=== PATIENT | male | born 1955 | race Caucasian/White ===

== ENCOUNTER 2019-05-24 15:40 | Inpatient (IN) | payer OTHER ==
[~2019-05-24] VITALS: Ht 160 cm; Wt 64.0 kg
[2019-05-24 15:46] VITALS: BP 149/58
--- NOTE | 2019-05-24 16:01 | NUR ---
PT AMB TO BED 10
--- NOTE | 2019-05-24 17:14 | NUR ---
C/O DIABETIC WOUND TO PTS LEFT BIG TOE X 1 MONTH. ERYTHMA, SWELLING, AND WARMTH NOTED TO PTS TOE AND TOP OF FOOT. CAP REFILL < 3 SECONDS, PALPABLE L POSTERIOR TIBIAL. TEMP 98.4 AT THIS TIME. PAIN 2/10 TO SITE. BS 68 UPON TRIAGE REFERRED FROM URGENT CARE FOR R/O SEPSIS. VS STABLE. PT ALERT AND AWAKE. AMBULATORY WITH STEADY GAIT. BED IS DOWN, LOCKED, BED RAIL X 1, ERMD TO SEE PT. MED HX:DM
--- NOTE | 2019-05-24 17:15 | NUR ---
PT UNABLE TO PROVIDE URINE SAMPLE AT THIS TIME
--- NOTE | 2019-05-24 17:23 | NUR ---
IV INSERTED AND LABS DRAWN BEDSIDE
--- NOTE | 2019-05-24 17:24 | NUR ---
SWAB COLLECTED FROM TOE
[2019-05-24] MEDS ORDERED: PIPERACILLIN/TAZOBACTAM 3.375 GM in DEXTROSE 5% 50 ML IV ONE (17:25)
[2019-05-24] MEDS ORDERED: PIPERACILLIN/TAZOBACTAM 3.375 GM VIAL IV ONE ×2 (17:26→23:56)
--- NOTE | 2019-05-24 17:36 | NUR ---
RT AT BEDSIDE
--- NOTE | 2019-05-24 17:37 | NUR ---
ANAHI STARTED IVBP BY NOLAN SANTOS
[2019-05-24 17:43] LABS: HEMATOCRIT 33.2 % (36-52); HEMOGLOBIN 11.1 g/dL (12.0-18.0); LYMPHOCYTES # (AUTO) 0.5 K/uL (2.0-11.5); LYMPHOCYTES % (AUTO) 2.4 % (20.5-51.1); MEAN CORPUSCULAR HEMOGLOBIN 32 pg (27-31); MEAN CORPUSCULAR HGB CONC 34 g/dL (33-37); MEAN CORPUSCULAR VOLUME 95.4 fL (80-94); MONOCYTES # (AUTO) 1.5 K/uL (0.8-1.0); MONOCYTES % (AUTO) 7.8 % (1.7-9.3); NEUTROPHILS % (AUTO) 89.8 % (42.2-75.2); PLATELET COUNT (AUTO) 302 K/uL (140-450); RED BLOOD CELL COUNT(AUTO) 3.48 MIL/uL (4.20-6.10); RED CELL DISTRIBUTION WIDTH 12.5 % (11.6-13.7)
--- NOTE | 2019-05-24 17:49 | NUR ---
ULTRASOUND AT BEDSIDE
[2019-05-24] MEDS ORDERED: ONDANSETRON 4 MG/2 ML VIAL IM/IVP PRN (18:00)
[2019-05-24] MEDS ORDERED: HYDROcodone/APAP 7.5/325 MG 1 TAB PO PRN (18:00)
[2019-05-24] MEDS ORDERED: DOCUSATE SODIUM 100 MG GELCAP PO PRN (18:00)
[2019-05-24] MEDS ORDERED: ACETAMINOPHEN 325 MG TAB PO PRN (18:00)
--- NOTE | 2019-05-24 18:03 | NUR ---
DR BARRETT NOTIFIED OF PTS BP. ORDERED DIABETIC MEAL
--- NOTE | 2019-05-24 18:04 | NUR ---
PT GIVEN JUICE BOX AT THIS TIME
[2019-05-24] MEDS ORDERED: DEXTROSE 50% 50 ML SYR IVP PRN (18:10)
[2019-05-24] MEDS ORDERED: NOVR SUBQ (18:12)
--- NOTE | 2019-05-24 18:26 | NUR ---
Patient noted to have existing wounds TO L BIG TOE upon arrival to ER. Photos taken of wound and placed in chart. Wound covered with dressing. Physician informed.
--- NOTE | 2019-05-24 18:27 | NUR ---
XRAY AT BEDSIDE
[2019-05-24 18:35] LABS: ACETONE, SERUM NEGATIVE (NEGATIVE)
[2019-05-24 18:36] LABS: PROTHROMBIN TIME 9.6 secs (10.8-13.4)
[2019-05-24 18:40] LABS: ALBUMIN 2.8 g/dL (3.4-5.0); ANION GAP 16.2 (8-16); ASPARTATE AMINOTRANSFERASE 18 U/L (15-37); CARBON DIOXIDE 25.6 mmol/L (21-32); CHLORIDE 100 mmol/L (98-107); CREATININE 1.1 mg/dL (0.7-1.3); GFR ARICAN-AMERICAN 87 mL/min (>90); GLUCOSE 69 mg/dL (74-106); MAGNESIUM 1.8 mg/dL (1.8-2.4); POTASSIUM 3.8 mmol/L (3.5-5.1); SODIUM SERUM 138 mmol/L (136-145); TOTAL BILIRUBIN 0.3 mg/dL (0.0-1.0); UREA NITROGEN, BLOOD 21 mg/dL (7-18)
[2019-05-24] MEDS ORDERED: INSU100S10 SC ×2 (18:40)
[2019-05-24] MEDS ORDERED: VANCOMYCIN PER PHARMACY MC PRN (18:45)
--- NOTE | 2019-05-24 18:45 | NUR ---
Patient will be admitted to care of [facility]. Admited to [facility]. Will go to room 119A. Belongings list completed. Report to KARMEN SANTOS. INFORMED KARMEN THAT PT HAS NOT YET URINATED MEAL TRANSPORTED WITH PT, INFORMED KARMEN THAT LAST BLOOD SUGAR WAS 88
--- NOTE | 2019-05-24 18:45 | NUR ---
PT ARRIVED ON THE UNIT. TOOK REPORT FROM [employer] [place] MACHINE TENDER. COLLECTED MRSA NARES. ORIENTED PT TO ROOM AND UNIT. PT APPEARS STABLE AND IN NO APPARENT DISTRESS. ALL SAFETY MEASURES ARE IN PLACE PT STATING AT 100% SPO2 ROOM AIR.
[2019-05-24 18:55] LABS: THYROID STIMULATING HORMONE 2.05 uIU/mL (0.34-3.74)
[2019-05-24 19:05] LABS: URIC ACID 3.2 mg/dL (2.6-7.2)
[2019-05-24] MEDS ORDERED: SODIUM PHOS / POTASSIUM PHOS 1 PKT PDR PO ONE (19:15)
[2019-05-24] MEDS ORDERED: VANCOMYCIN 1GM/DEXT 5% PREMIX 200 ML IV ONE (19:30)
--- NOTE | 2019-05-24 19:41 | NUR ---
ENDORSED PT TO PM RN PT AWAKE IN BED PT APPEARS STABLE AN DIN NO APPARENT DISTRESS. ALL SAFETY MEASURES ARE IN PLACE
--- NOTE | 2019-05-24 19:42 | NUR ---
RECEIVED REPORT FROM AM SHIFT NURSE. PATIENT ALERT AND ORIENTED X 4. NO APPARENT DISTRESS NOTED. INTRODUCED SELF AND ORIENTED PATIENT TO HOSPITAL ROUTINE, ENVIRONMENT AND PLAN OF CARE. WITH PIV ON RIGHT AC 20G. PATENT AND INTACT WITH IVF RUNNING. NOTED WITH LEFT FOOT WOUND DRY PLASTERER HELPER AT THIS TIME. WILL CONTINUE TO MONITOR.
[2019-05-24] MEDS: NACL 0.9% 1,000 ML IV SCH (19:45)
[2019-05-24] MEDS ORDERED: VANCOMYCIN 1,000 MG VIAL ONE (20:41)
[2019-05-24] MEDS: BLOOD GLUCOSE MONITORING 1 DEV DEV FS SCH (20:59)
--- NOTE | 2019-05-24 21:30 | NUR ---
BEDSIDE I&D DONE BY DR. MARCELINO. TOOK PICTURES OF WOUND. UNABLE TO TAKE PICTURES DUE TO NOT PRESENT AT BEDSIDE DURING I&D.
[2019-05-24] MEDS: INSULIN LISPRO SLIDING SCALE 100 UNITS/ML VIAL SUBQ PRN (21:42)
--- NOTE | 2019-05-24 23:20 | NUR ---
PATIENT ASLEEP IN BED, RESTING COMFORTABLY. NO APPARENT DISTRESS NOTED. WILL CONTINUE TO MONITOR.
[2019-05-24 23:50] LABS: APPEARANCE,URINE CLEAR (CLEAR); COLOR,URINE YELLOW (YELLOW)
[2019-05-24 23:51] LABS: BILIRUBIN,URINE NEGATIVE (NEGATIVE); BLOOD, URINE NEGATIVE (NEGATIVE); LEUKOCYTE ESTERASE ,URINE NEGATIVE (NEGATIVE); NITRITE, URINE NEGATIVE (NEGATIVE); PH,URINE 5.5 (5.0-9.0); UGLUCOSE NEGATIVE (NEGATIVE)
[2019-05-25] VITALS: BP 122/71
[2019-05-25] MEDS: PIPERACILLIN/TAZOBACTAM 3.375 GM in DEXTROSE 5% 50 ML IV SCH ×5 (00:03→23:51)
--- NOTE | 2019-05-25 01:15 | NUR ---
ROUNDS DONE. PATIENT ASLEEP IN BED. VISIBLE CHEST RISE AND FALL NOTED. BED ON LOW POSITION. CALL LIGHT WITHIN REACH. NO APPARENT DISTRESS NOTED. WILL CONTINUE TO MONITOR.
--- NOTE | 2019-05-25 03:10 | NUR ---
PATIENT ASLEEP IN BED. NO DISTRESS NOTED. BED ON LOW POSITION. WILL CONTINUE TO MONITOR.
[2019-05-25] MEDS: NACL 0.9% 1,000 ML IV SCH ×3 (04:45→23:01)
--- NOTE | 2019-05-25 05:05 | NUR ---
PATIENT ASLEEP IN BED. VISIBLE CHEST RISE AND FALL NOTED. NO APPARENT DISTRESS NOTED. WILL CONTINUE TO MONITOR.
[2019-05-25] MEDS ORDERED: PIPERACILLIN/TAZOBACTAM 3.375 GM VIAL IV ONE (06:01)
[2019-05-25 06:11] LABS: BASOPHILS % (AUTO) 0.2 % (0.0-2.0); EOSINOPHILS % (AUTO) 0.2 % (0.0-4.0); HEMATOCRIT 30.9 % (36-52); HEMOGLOBIN 10.3 g/dL (12.0-18.0); LYMPHOCYTES # (AUTO) 1.2 K/uL (2.0-11.5); LYMPHOCYTES % (AUTO) 8.6 % (20.5-51.1); MEAN CORPUSCULAR HEMOGLOBIN 32 pg (27-31); MEAN CORPUSCULAR HGB CONC 33 g/dL (33-37); MEAN CORPUSCULAR VOLUME 95.8 fL (80-94); MONOCYTES # (AUTO) 1.1 K/uL (0.8-1.0); NEUTROPHILS # (AUTO) 11.3 K/uL (1.8-7.7); PLATELET COUNT (AUTO) 269 K/uL (140-450); RED BLOOD CELL COUNT(AUTO) 3.22 MIL/uL (4.20-6.10); RED CELL DISTRIBUTION WIDTH 12.4 % (11.6-13.7); WHITE BLOOD COUNT (AUTO) 13.6 K/uL (4.8-10.8)
[2019-05-25] MEDS: INSULIN LISPRO SLIDING SCALE 100 UNITS/ML VIAL SUBQ PRN ×3 (06:18→23:46)
[2019-05-25] MEDS: BLOOD GLUCOSE MONITORING 1 DEV DEV FS SCH ×4 (06:21→20:36)
[2019-05-25 06:37] LABS: ANION GAP 13.1 (8-16); CARBON DIOXIDE 25.9 mmol/L (21-32)
[2019-05-25 06:40] LABS: CHOL/HDL RATIO 3.4 (1-4.5)
--- NOTE | 2019-05-25 06:44 | NUR ---
PATIENT ASLEEP IN BED. NO APPARENT DISTRESS NOTED. BED ON LOW POSITION. WILL CONTINUE TO MONITOR.
[2019-05-25 06:45] LABS: MAGNESIUM 1.6 mg/dL (1.8-2.4); PHOSPHORUS 2.8 mg/dL (2.5-4.9)
--- NOTE | 2019-05-25 07:30 | NUR ---
ENDORSED TO AM SHIFT NURSE IN STABLE CONDITION.
--- NOTE | 2019-05-25 07:30 | NUR ---
RECEIVED BEDSIDE REPORT FROM FIELD SPECIALIST NURSE FOR CONTINUITY OF CARE. PATIENT IS AWAKE AND RESTING ON BED AT THIS TIME. PATIENT IS AAOX 4. RESPIRATION EVEN AND UNLABORED ON RA. DENIED PAIN, SOB AND DIZZINESS AT THIS TIME. NO SIGNS OF DISTRESS NOTED. IV ON RAC 20G, CLEAN AND INTACT, INFUSING PER MD ORDER. S/P I&D ON L FOOT AND WRAPPED AROUND WITH DRESSING, DRESSING CLEAN AND DRY. PATIENT IS CONTINENT AND ABLE TO USE THE URANAL BY BEDSIDE. PATIENT IS ABLE TO AMBULATE WITH STANDBY ASSIST. DISCUSSED PLAN OF CARE WITH PATIENT ANT PATIENT SAID OK. NPO MAINTAINED AND SIGN POSTED. SAFETY MEASURES IN PLACE. BED IN LOW POSITION AND CALL LIGHT WITHIN REACH. INSTRUCTED PATIENT TO USE THE CALL LIGHT FOR ANY ASSISTANCE AND PATIENT WAS AWARE.
[2019-05-25 08:00] VITALS: BP 136/68
--- NOTE | 2019-05-25 08:18 | NUR ---
PATIENT HAS BEEN SCREENED AND CATEGORIZED HIGH NUTRITION RISK. PATIENT WILL BE SEEN WITHIN 1-2 DAYS OF ADMISSION. 05/25/19-05/26/[address]
[2019-05-25] MEDS ORDERED: MAGNESIUM OXIDE 400 MG TAB PO SCH (08:45)
[2019-05-25] MEDS: LACTOBACILLUS RHAMNOSUS GG 1 EACH CAP PO SCH (09:06)
--- NOTE | 2019-05-25 09:06 | NUR ---
ADMINISTERED SCHEDULED MEDS PER MD ORDER, MEDS EDUCATION PROVIDED TO PATIENT, AND PATIENT VERBALIZED UNDERSTANDING. PATIENT TOLERATED MEDS WELL. PATIENT AWAKE AND TALKING TO FAMILY AT BEDSIDE. DENIED PAIN, SOB AND DIZZINESS. NO SIGNS OF DISTRESS NOTED. BED IN LOW POSITION AND CALL LIGHT WITHIN REACH. INSTRUCTED PATIENT TO USE THE CALL LIGHT FOR ANY ASSISTANCE AND PATIENT WAS AWARE.
--- NOTE | 2019-05-25 11:21 | NUR ---
PATIENT AWAKE AND TALKING TO VISITORS AT BEDSIDE. DENIED PAIN, SOB AND DIZZINESS. NO SIGNS OF DISTRESS NOTED, SAFETY MEASURES IN PLACE.
--- NOTE | 2019-05-25 11:50 | NUR ---
PATIENT IS PRAYING WITH FAMILY AT BEDSIDE. NO SIGNS OF DISTRESS NOTED.
--- NOTE | 2019-05-25 12:05 | NUR ---
PATIENT IS OFF UNIT TO OR ACCOMPANIED WITH OR NURSED. PATIENT IS IN STABLE CONDITION.
[2019-05-25] MEDS ORDERED: BUPIVACAINE-MPF 0.5% 30 ML VIAL INJ ONE (12:09)
[2019-05-25] MEDS ORDERED: fentaNYL 0.05 MG/ML VIAL ONE (12:15)
[2019-05-25] MEDS ORDERED: MIDAZOLAM 2 MG/2 ML VIAL ONE (12:15)
[2019-05-25] MEDS ORDERED: PROPOFOL 200 MG/20 ML VIAL IV ONE (12:22)
[2019-05-25] MEDS ORDERED: BLOOD GLUCOSE MONITORING 1 DEV DEV FS SCH (12:45)
[2019-05-25] MEDS ORDERED: HYDROmorphone 1 MG/ML AMP IVP PRN (12:45)
[2019-05-25] MEDS ORDERED: ONDANSETRON 4 MG/2 ML VIAL IVP PRN (12:45)
--- NOTE | 2019-05-25 13:25 | NUR ---
PATIENT IS TALKING TO VISITORS AT BEDSIDE. NO SIGNS OF DISTRESS NOTED.
--- NOTE | 2019-05-25 14:00 | NUR ---
PATIENT RETURNED FROM OR ACCOMPANIED BY A NURSE. VITAL SIGNS TAKEN. PATIENT STABLE AT BEDSIDE. PATIENT TALKING TO FAMILY AT BEDSIDE.
--- NOTE | 2019-05-25 14:33 | NUR ---
ADMINISTERED MEDICATION ORDERED PER MD. PATIENT AWAKE AND TALKING ON THE PHONE. FAMILY AT BEDSIDE. VITAL SIGNS STABLE. SAFETY MEASURES: HOB ELEVATED, BED IN LOWEST POSITION, AND CALL LIGHT WITHIN REACH.
--- NOTE | 2019-05-25 14:38 | NUR ---
Deputy Juvenile Officer Assessment/Discharge Plan: Name: Maggy Sanchez Home Relationship: Pre-Admission Living Arrangements: Lives with Other Other: Maggy Sanchez Prior ADL Independent Current Home Health Name/Tel: N/A Current DME/02 Name/Tel: Maggy will obtain BGM Current Hospice Name/Tel: N/A Current Dialysis Name/Tel: N/A Healthcare Decision Maker: Patient Tentative Discharge Plan Summary: Patient is a 64 year old male admitted for left foot diabetic cellulitis. Patient went to OR, currently out of room. I met with patient's Maggy Sanchez and patient's daughter Adriana Sanchez. Patient lives at home with Maggy and plan is for patient to return home upon discharge. Patient has not received medical care recently. He has an upcoming appt with a physician on 06/29/19. Patient does not have a blood glucose monitor but his Maggy is planning to obtain one from pharmacy soon. Patient drives to store. Both Maggy and Adriana stated patient does not have hx of mental health nor alcohol/substance abuse. I provided Maggy with my contact information. Deputy Juvenile Officer and/or Pot Pusher will follow up as needed. Signature: MARTY Howell Date: May 25, 2019
--- NOTE | 2019-05-25 15:23 | NUR ---
DC PLANNING : 64 YRS OLD MALE PT WAS ADMITTED FROM HOME WITH A DX OF LEFT FOOT. PT HAS A HX OF UNCONTROLLED DM AND OSTEOMYELITIS LEFT HALLUX ADMINISTERED IV VANCO AND ZOSYN PODIATRY CONSULT .DC PLAN , LEFT HALLUX AMPUTATION , CULTURE SENT TO PATHOLOGY , DC PLAN CONTINUE IV ABX CM TO FOLLOW Addendum: 05/26/19 at 1212 by Anabel Wood CM DC PLANNING: PER PODIATRY PT'S WOUND NEEDS MORE DEBRIDEMENT AND HEALING TIME PLAN TO GO BACK TO SURGERY ON SATURDAY , CONTINUE VANCO AND ZOSYN CM TO FOLLOW Addendum: 05/27/19 at 1448 by Anabel Wood CM DC PLANNING: SEEN BY DR CUMMINGS (PODIATRY) INCISION SITE HAS NECROTIC WITH SURROUNDING SKIN NECROSIS. SCHEDULED TO UNDERGO REPAIR OF SURGICAL WOUND WITH LEFT PARTIAL FIRST RAY AMPUTATION ON SATURDAY. CONTINUE WITH VANCOMYCIN AND ZOSYN IV CM TO FOLLOW. Addendum: 05/28/19 at 1121 by Anabel Wood CM DC PLANNING: PT IS SCHEDULED TO HAVE REPAIR OF SURGICAL WOUND SATURDAY ,DC PLAN TO GO TO SNF FOR WOUND CARE AND IV ABX. CALLED LIANE REYES AT [facility] IPA [phone] LEFT A MESSAGE AND FAXED ALL THE PAPER WORK TO [facility] [phone]. LIANE TO FOLLOW Addendum: 05/28/19 at 1548 by Anabel Wood CM DC PLANNING: RECEIVED A CALL FROM AMY ROB AT [facility] PPO [phone] PER AMY THEY ARE CONTRACTED WITH [facility] [phone] , [facility], [facility] ,[place] AND [facility]. LIANE WILL FAX THE PAPER WORK WHEN PT HAS A DC ORDER AND PER AMY TO FAX THE ORDER AND CLINICAL TO [phone] AND TO CALL THE INTAKE FREIGHT CONDUCTOR AT [phone] Addendum: 05/29/19 at 1737 by Brittney Cortes LATE ENTRY: CONTACTED AMY OF [facility] AT [phone], NO ANSWER. LEFT VOICEMAIL. RECEIVED A CALL FROM AMY, INFORMED HER THAT THE DC PLAN CHANGED TO HOME FOR IV ANTIBIOTIC AND WOUND CARE. SHE STATED THEIR CONTRACTED INFUSION COMPANY IS [employer] AT [phone]. HOME HEALTH SERVICES: [facility] [phone] FAX [phone] - PER SHE WILL CHECK IF THEY HAVE A NURSE AND WILL GIVE ME A CALL BACK [employer] - [phone] FAX [phone] - PER ERIK, SHE DOES NOT HAVE AN IV NURSE AT THIS TIME. BUT IF HOME INFUSION WILL DO THE IV ANTIBIOTIC, SHE CAN PROVIDE A NURSE FOR WOUND CARE. [facility] - [phone], PER SAM THEY DO NOT COVER [facility] - [phone] [facility] -[phone] FAX [phone] [facility] - [phone] [facility] SHE ALSO STATED TO CONTACT THE [facility] VACCINATOR AT [phone]. Addendum: 05/29/19 at 1755 by Brittney Cortes CM PER [facility] THEY ARE NOT ABLE TO ACCEPT THE PATIENT DUE TO THEY DO NOT HAVE A NURSE IN [place] AT THIS TIME. Addendum: 05/30/19 at 1015 by Anabel Wood DC PLANNING PER DR BLACK [facility] [phone] SPOKE WITH LUE , ACCEPTED PATIENT AND WILL START THE CARE ON SATURDAY
[2019-05-25 16:00] VITALS: BP 108/46
--- NOTE | 2019-05-25 17:58 | NUR ---
PATIENT RECEIVED HIS DINNER TRAY. ADMINISTERED 4 UNITS OF HUMALOG FOR BLOOD GLUCOSE 212, MED EDUCATION PROVIDED TO PATIENT AND PATIENT VERBALIZED UNDERSTANDING. PATIENT IS EATING DINNER AT THIS TIME AND FAMILY BY BEDSIDE. NO SIGNS OF DISTRESS NOTED. DENIED PAIN, SOB, AND DIZZINESS. SAFETY MEASURES IN PLACE.
--- NOTE | 2019-05-25 18:10 | NUR ---
ADMINISTERED IVPB ANTIBIOTIC PRESCRIBED BY MD. TOLERATED WELL. NO COMPLICATIONS NOTED AT THIS TIME.
--- NOTE | 2019-05-25 19:04 | NUR ---
ENDORSED PATIENT AT BEDSIDE TO NIGHTSHIFT NURSE. CONTINUITY OF CARE. PATIENT IS AWAKE TALKING TO FAMILY AT BEDSIDE. NO SIGNS OF DISTRESS NOTED. PT IS IN STABLE CONDITION.
--- NOTE | 2019-05-25 19:05 | NUR ---
RECEIVED REPORT FROM AM SHIFT NURSE. PATIENT ALERT AND ORIENTED X 4. MEDSURG PATIENT. WITH IV ON RIGHT AC 20G. NO APPARENT DISTRESS NOTED. NOTED WITH LEFT FOOT WOUND S/P AMPUTATION OF THE LEFT BIG TOE AND 2ND TOE AT THIS TIME. POC DISCUSSED. WITH FAMILY AT BEDSIDE. CALL LIGHT WITHIN EASY REACH. WILL CONTINUE TO MONITOR.
--- NOTE | 2019-05-25 20:00 | NUR ---
PATIENT WENT TO THE BEDSIDE TO COMMODE, NON WEIGHTBEARING ON AFFECTED LEFT FOOT. MOST OF THE WEIGHT ON THE RIGHT FOOT. BOWEL MOVEMENT X 1.
[2019-05-25] MEDS: VANCOMYCIN 1,000 MG in NACL 0.9% 250 ML IV SCH (20:16)
--- NOTE | 2019-05-25 22:00 | NUR ---
INSTRUCTED PATIENT TO USE THE CALL LIGHT FOR ANY ASSISTANCE AND PATIENT AWARE, AWARE.
--- NOTE | 2019-05-25 23:01 | NUR ---
PT IV DISLODGED REINSERTED ON THE RIGHT FOREARM G 22, FLUSHED, PATENT. NO BLEEDING NO SWELLING
[2019-05-26] VITALS: BP 108/66
--- NOTE | 2019-05-26 00:30 | NUR ---
PATIENT SLEEPING, NOT IN RESPIRATORY DISTRESS,NO S/ SX'S OF PAIN, WILL CONTINUE TO MONITOR
--- NOTE | 2019-05-26 02:53 | NUR ---
CHECKED ON PATIENT, SLEEPING. NO COMPLAINTS AT THIS TIME. WILL CONTINUE TO MONITOR
[2019-05-26 05:52] LABS: BASOPHILS % (AUTO) 0.2 % (0.0-2.0); EOSINOPHILS # (AUTO) 0.1 K/uL (0-0.4); EOSINOPHILS % (AUTO) 0.7 % (0.0-4.0); HEMATOCRIT 31.1 % (36-52); HEMOGLOBIN 10.2 g/dL (12.0-18.0); LYMPHOCYTES # (AUTO) 1.5 K/uL (2.0-11.5); LYMPHOCYTES % (AUTO) 13.4 % (20.5-51.1); MEAN CORPUSCULAR HEMOGLOBIN 32 pg (27-31); MEAN CORPUSCULAR HGB CONC 33 g/dL (33-37); MONOCYTES % (AUTO) 9.3 % (1.7-9.3); NEUTROPHILS # (AUTO) 8.7 K/uL (1.8-7.7); NEUTROPHILS % (AUTO) 76.4 % (42.2-75.2); PLATELET COUNT (AUTO) 289 K/uL (140-450); RED BLOOD CELL COUNT(AUTO) 3.24 MIL/uL (4.20-6.10); RED CELL DISTRIBUTION WIDTH 12.7 % (11.6-13.7); WHITE BLOOD COUNT (AUTO) 11.3 K/uL (4.8-10.8)
[2019-05-26 06:08] LABS: ANION GAP 13.5 (8-16); CARBON DIOXIDE 25.8 mmol/L (21-32); CREATININE 0.9 mg/dL (0.7-1.3); POTASSIUM 4.3 mmol/L (3.5-5.1)
[2019-05-26] MEDS: BLOOD GLUCOSE MONITORING 1 DEV DEV FS SCH ×4 (06:24→19:36)
[2019-05-26] MEDS: PIPERACILLIN/TAZOBACTAM 3.375 GM in DEXTROSE 5% 50 ML IV SCH ×3 (06:24→17:48)
[2019-05-26] MEDS: INSULIN LISPRO SLIDING SCALE 100 UNITS/ML VIAL SUBQ PRN ×4 (06:27→19:46)
--- NOTE | 2019-05-26 06:55 | NUR ---
PT IN STABLE CONDITION WILL ENDORSE TO NEXT SHIFT
--- NOTE | 2019-05-26 07:00 | NUR ---
RECEIVED REPORT FROM NIGHTSHIFT. PATIENT AWAKE AND ALERT IN BED UPON ARRIVAL. ABLE TO MAKE NEEDS KNOWN. NO COMPLAINTS OF PAIN OR DISCOMFORT. AT BEDSIDE AND PATIENT IS STABLE. SAFETY MEASURES: HOB ELEVATED, BED IN LOWEST POSITION, AND CALL LIGHT WITHIN REACH. FREQUENT CHECKS MADE
[2019-05-26 08:00] VITALS: BP 107/75
[2019-05-26] MEDS: FERROUS GLUCONATE 324 MG TAB PO SCH (10:05)
[2019-05-26] MEDS: LACTOBACILLUS RHAMNOSUS GG 1 EACH CAP PO SCH (10:05)
--- NOTE | 2019-05-26 10:05 | NUR ---
ADMINISTERED MEDICATION PRESCRIBED BY MD. MEDICATION EDUCATION PROVIDED TO PATIENT. PT VERBALIZED UNDERSTANDING. PT AWAKE AND ALERT IN BED TALKING TO VISITOR AT BEDSIDE. ABLE TO MAKE NEEDS KNOWN. BED IN LOWEST POSITION, HOB ELEVATED, CALL LIGHT WITHIN REACH.
[2019-05-26] MEDS: NACL 0.9% 1,000 ML IV SCH ×2 (10:38→21:47)
--- NOTE | 2019-05-26 10:38 | NUR ---
DR. MARCELINO IS AT BEDSIDE DOING WOUND CARE. PATIENT IS AWAKE AND TALKING TO VISITOR AT BEDSIDE. IVF SODIUM CHLORIDE 0.9% HUNG. PATIENT TOLERATED WELL. PATIENT EDUCATED ON MEDICATION REGIME. ABLE TO VERBALIZE UNDERSTANDING. NO COMPLICATIONS AT THIS TIME.
--- NOTE | 2019-05-26 11:30 | NUR ---
X RAY EQUIPMENT SERVICER ASSISTED PATIENT TO USE THE BEDSIDE COMMODE. NO SIGNS OF DISTRESS NOTED. INSTRUCTED PATIENT TO USE THE CALL LIGHT FOR ANY ASSISTANCE AND PATIENT WAS AWARE.
[2019-05-26] MEDS ORDERED: GABAPENTIN 300 MG CAP PO SCH (11:52)
--- NOTE | 2019-05-26 12:18 | NUR ---
PATIENT RECEIVED HIS LUNCH TRAY, ADMINISTERED HUMALOG FOR BLOOD GLUCOSE 294, MEDS ED PROVIDED TO PATIENT AND PATIENT VERBALIZED UNDERSTANDING. PATIENT AWAKE AND RESTING ON BED AT THIS TIME. VISITOR BY BEDSIDE. DENIED PAIN, SOB, AND DIZZINESS. NO SIGNS OF DISTRESS NOTE. SAFETY MEASURES IN PLACE. BED IN LOW POSITION AND CALL LIGHT WITHIN REACH. INSTRUCTED PATIENT TO USE THE CALL LIGHT LIGHT FOR ANY ASSISTANCE AND PATIENT WAS AWARE.
[2019-05-26] MEDS ORDERED: MAG SULF 2000 MG/WATER PREMIX 50 ML IV SCH (13:00)
--- NOTE | 2019-05-26 13:01 | NUR ---
ADMINISTERED MAG VIA IV PER MD ORDER FOR 1.6 MAG LAB, DR PRETTY WAS AWARE LAB FROM YESTERDAY. MED EDUCATION PROVIDED TO PATIENT AND PATIENT VERBALIZED UNDERSTANDING. PATIENT AWAKE AND TALKING TO VISITOR AT BEDSIDE. DENIED PAIN, SOB, AND DIZZINESS. NO SIGNS OF DISTRESS NOTED. SAFETY MEASURES IN PLACE.
--- NOTE | 2019-05-26 13:51 | NUR ---
05/26/19 RD INITIAL ASSESSMENT COMPLETED PLEASE REFER TO NUTRITION ASSESSMENT UNDER CARE ACTIVITY FOR ESTIMATED NUTRITIONAL NEEDS. 1. CONTINUE [facility] 45 GM DIET TOLERATED 2. DOUBLE PROTEIN PORTIONS WILL BE PROVIDED TO PATIENT. 3. NUTRITION EDUCATION WAS PROVIDED BY RD ON CONSISTENT CARBOHYDRATE INTAKE 4. RD TO FOLLOW-UP 3-5 DAYS, MODERATE RISK [address]NOR PALOMO RD
--- NOTE | 2019-05-26 15:28 | NUR ---
PATIENT IS ASLEEP IN BED. ABLE TO MAKE NEEDS KNOWN. AROUSAL TO VOICE STIMULATION. FAMILY VISITING AT BEDSIDE.
[2019-05-26 16:00] VITALS: BP 143/67
--- NOTE | 2019-05-26 17:31 | NUR ---
PATIENT IS AWAKE AND TALKING TO FAMILY AT BEDSIDE. ABLE TO MAKE NEEDS KNOWN. RESPONSIVE TO VERBAL AND TACTILE STIMULATION. NO COMPLAINTS OF PAIN OR DISCOMFORT. SAFETY MEASURES: HOB ELEVATED, BED IN LOWEST POSITION, AND CALL LIGHT WITHIN REACH. WILL CONTINUE TO MONITOR
--- NOTE | 2019-05-26 17:48 | NUR ---
PATIENT RECEIVED HIS DINNER TRAY, ADMINISTERED HUMALOG SLIDING SCALE FOR BLOOD GLUCOSE 246, MED EDUCATION PROVIDED TO PATIENT. ADMINISTERED SCHEDULED ANTIBIOTIC PER MD ORDER, MED ED PROVIDED TO PATIENT AND PATIENT VERBALIZED UNDERSTANDING. PATIENT AWAKE AND TALKING TO DAUGHTER GERRI AND BROTHER KAITLYNN BY BEDSIDE. DENIED PAIN, DIZZINESS AND NAUSEA. NO SIGNS OF DISTRESS NOTED. SAFETY MEASURES IN PLACE. BED IN LOW POSITION AND CALL LIGHT WITHIN REACH.
--- NOTE | 2019-05-26 19:06 | NUR ---
ENDORSED TO SLATE SPLITTER NURSE AT BEDSIDE. PATIENT WAS IN BED AND ALERT AND ORIENTED TALKING TO DAUGHTER AT BEDSIDE. NO SIGNS AND SYMPTOMS OF DISTRESS NOTED. PATIENT IN STABLE CONDITION
--- NOTE | 2019-05-26 19:08 | NUR ---
RECEIVED REPORT FROM AM SHIFT NURSE. PATIENT ALERT AND ORIENTED X 4. MEDSURG PATIENT. WITH IV ON RIGHT AC 20G. NO APPARENT DISTRESS NOTED. NOTED WITH LEFT FOOT WOUND S/P AMPUTATION OF THE LEFT BIG TOE AND 2ND TOE AT THIS TIME. POC DISCUSSED. WITH DAUGHTER AT BEDSIDE. ENCOURAGE TO DO INCENTIVE SPIROMETRY. CALL LIGHT WITHIN EASY REACH. WILL CONTINUE TO MONITOR.
[2019-05-26] MEDS: INSULIN NPH HUMAN ISOPHANE 100 UNIT/ML VIAL SUBQ SCH (19:38)
[2019-05-26] MEDS: VANCOMYCIN 1,000 MG in NACL 0.9% 250 ML IV SCH (19:51)
[2019-05-26] MEDS: MELATONIN 3 MG TAB PO PRN (19:53)
--- NOTE | 2019-05-26 21:00 | NUR ---
GAVE HEALTH TEACHINGS TO PT REGARDING REGARDING BLOOD GLUCOSE AND INSULIN. PT ACKNOWLEDGED
--- NOTE | 2019-05-26 22:00 | NUR ---
INSTRUCTED PATIENT TO USE THE CALL LIGHT FOR ANY ASSISTANCE AND PATIENT AWARE, DAUGHTER AWARE.
[2019-05-26 23:14] LABS: TRANSFERRIN 161 mg/dL (200 - 370)
[2019-05-27] VITALS: BP 142/69
--- NOTE | 2019-05-27 00:15 | NUR ---
CHECKED ON PATIENT, SLEEPING . NOT IN RESPIRATORY DISTRESS. NO COMPLAINTS OF PAIN. WILL MONITOR
[2019-05-27] MEDS: PIPERACILLIN/TAZOBACTAM 3.375 GM in DEXTROSE 5% 50 ML IV SCH ×5 (01:30→23:00)
[2019-05-27] MEDS: NACL 0.9% 1,000 ML IV SCH ×4 (01:38→23:05)
--- NOTE | 2019-05-27 03:00 | NUR ---
PT GOT UP AND VOIDED 1X NO COMPLAINTS AT THIS TIME. WENT BACK TO SLEEP
--- NOTE | 2019-05-27 05:04 | NUR ---
CHECKED ON PT AGAIN STILL SLEEPING BUT WASILY AROUSABLE BY NAME. WILL MONITOR
[2019-05-27 06:14] LABS: BASOPHILS % (AUTO) 0.3 % (0.0-2.0); EOSINOPHILS # (AUTO) 0.1 K/uL (0-0.4); EOSINOPHILS % (AUTO) 1.3 % (0.0-4.0); HEMATOCRIT 28.6 % (36-52); HEMOGLOBIN 9.5 g/dL (12.0-18.0); LYMPHOCYTES # (AUTO) 1.3 K/uL (2.0-11.5); LYMPHOCYTES % (AUTO) 11.6 % (20.5-51.1); MEAN CORPUSCULAR HEMOGLOBIN 32 pg (27-31); MEAN CORPUSCULAR HGB CONC 33 g/dL (33-37); MEAN CORPUSCULAR VOLUME 94.9 fL (80-94); MONOCYTES # (AUTO) 1.2 K/uL (0.8-1.0); NEUTROPHILS # (AUTO) 8.6 K/uL (1.8-7.7); NEUTROPHILS % (AUTO) 75.8 % (42.2-75.2); PLATELET COUNT (AUTO) 295 K/uL (140-450); RED BLOOD CELL COUNT(AUTO) 3.01 MIL/uL (4.20-6.10); RED CELL DISTRIBUTION WIDTH 12.4 % (11.6-13.7); WHITE BLOOD COUNT (AUTO) 11.3 K/uL (4.8-10.8)
[2019-05-27] MEDS: BLOOD GLUCOSE MONITORING 1 DEV DEV FS SCH ×4 (06:23→20:23)
[2019-05-27] MEDS: INSULIN LISPRO SLIDING SCALE 100 UNITS/ML VIAL SUBQ PRN ×4 (06:25→20:28)
[2019-05-27 06:45] LABS: ANION GAP 13.7 (8-16); CARBON DIOXIDE 25.4 mmol/L (21-32); CREATININE 0.9 mg/dL (0.7-1.3); POTASSIUM 4.1 mmol/L (3.5-5.1)
--- NOTE | 2019-05-27 07:10 | NUR ---
RECEIVED REPORT FROM LEAF SUCKER OPERATOR NURSE AT BEDSIDE. PATIENT IS AWAKE, ALERT AND ORIENTED X4, LYING IN BED. RESPIRATION EVEN AND UNLABORED. IV INTACT AND PATENT TO RIGHT FOREARM WITH IVF NS INFUSING AT 80ML/HR. TOLERATING WELL. DR. FALL AT BEDSIDE, REDRESSED PATIENT'S LEFT FOOT WOUND. NO S/S OF DISTRESS NOTED. CALL LIGHT WITHIN REACH. WILL CONTINUE TO MONITOR PATIENT.
[2019-05-27 08:00] VITALS: BP 150/65
[2019-05-27] MEDS: GABAPENTIN 300 MG CAP PO SCH (08:49)
[2019-05-27] MEDS: LACTOBACILLUS RHAMNOSUS GG 1 EACH CAP PO SCH (08:49)
[2019-05-27] MEDS: INSULIN NPH HUMAN ISOPHANE 100 UNIT/ML VIAL SUBQ SCH ×2 (08:51→20:28)
--- NOTE | 2019-05-27 09:00 | NUR ---
PATIENT IS IN BED, ALERT AND ORIENTED X4. PATIENT FINISHED EATING BREAKFAST, SITTING IN BED WATCHING TV. DENIES ANY PAIN OR DISCOMFORT AT THIS TIME. IVF NS STILL INFUSING 80ML/HR VIA RFA PERIPHERAL IV ACCESS. TOLERATING WELL. WILL CONTINUE TO MONITOR.
--- NOTE | 2019-05-27 11:30 | NUR ---
BLOOD SUGAR CHECKED 232, WILL GIVE COVERAGE OF 4UNITS HUMALOG ORDERED. PATIENT IS AWAKE AND ALERT. NO S/S OF DISTRESS NOTED.
--- NOTE | 2019-05-27 13:45 | NUR ---
PATIENT IS AWAKE, ALERT AND ORIENTED X4. FAMILY AT BEDSIDE. DENIES ANY PAIN OR DISCOMFORT. PATIENT USES BEDSIDE COMMODE. NO S/S OF DISTRESS NOTED.
--- NOTE | 2019-05-27 15:06 | NUR ---
PATIENT IS AWAKE, ALERT AND ORIENTED X4. FAMILY AT BEDSIDE. DENIES ANY PAIN OR DISCOMFORT. NO S/S OF DISTRESS NOTED. IVF NS 80ML/HR INFUSING AND TOLERATING WELL VIA PERIPHERAL IV TO RFA. WILL CONT. TO MONITOR.
[2019-05-27 16:00] VITALS: BP 156/69
--- NOTE | 2019-05-27 19:15 | NUR ---
REPORT GIVEN TO NIGHT NURSE, FOR CONTINUITY OF CARE. PATIENT IS IN STABLE CONDITION.
--- NOTE | 2019-05-27 19:16 | NUR ---
REPORT RECEIVED FROM AM NURSE AT BEDSIDE. PT IN STABLE CONDITION. AAOX4. INTRODUCED SELF TO PT. BOARD UPDATED. NO COMPLAINTS OF PAIN. NO SOB. AFEBRILE. PT IS AMBULATORY WITH ASSIST BUT HAS A BEDSIDE COMMODE. IV SITE R FA 22G RUNNING NS@80ML/HR PATENT AND INTACT. SKIN WARM, DRY, AND NOT INTACT DUE TO L FOOT DIABETIC CELLULITIS. BED LOCKED IN LOW POSITION. CALL TORRES WITHIN REACH. SAFETY PRECAUTION IN PLACE. ALL NEEDS MET AT THIS TIME.
--- NOTE | 2019-05-27 20:00 | NUR ---
KARRI HOLT DRAWN. AWAITING RESULTS.
--- NOTE | 2019-05-27 20:23 | NUR ---
BS 195. 2 UNITS OF HUMALOG GIVEN. 8 UNITS OF HUMULIN N GIVEN. PT TOLERATED WELL.
[2019-05-27] MEDS: MELATONIN 3 MG TAB PO PRN (20:33)
--- NOTE | 2019-05-27 20:33 | NUR ---
MELATONIN GIVEN FOR SLEEPLESSNESS. PT TOLERATED WELL.
--- NOTE | 2019-05-27 21:05 | NUR ---
VANCO TROUGH BACK@3.2. CALLED PHARMACY TO VERIFY GIVING PT VANCO DOSE. PHARMACY AGREED. MD NOTIFIED. MD AGREED TO CONTINUE WITH VANCO.
[2019-05-27] MEDS: VANCOMYCIN 1,000 MG in NACL 0.9% 250 ML IV SCH (21:14)
--- NOTE | 2019-05-27 21:14 | NUR ---
KARRI HASSAN AND RUNNING. PT TOLERATING WELL.
--- NOTE | 2019-05-27 23:00 | NUR ---
ANAHI HUNG AND RUNNING. PT TOLERATING WELL.
[2019-05-28] VITALS: BP 149/70
--- NOTE | 2019-05-28 01:20 | NUR ---
PT SLEEPING COMFORTABLY BUT AROUSABLE. NO S/S OF DISTRESS NOTED. NO COMPLAINTS OF PAIN. NO SOB. AFEBRILE. WILL CONTINUE TO MONITOR.
--- NOTE | 2019-05-28 03:50 | NUR ---
PT SLEEPING COMFORTABLY BUT AROUSABLE. NO S/S OF DISTRESS NOTED. RESPIRATIONS EVEN, UNLABORED, AND WNL. WILL CONTINUE TO MONITOR.
[2019-05-28] MEDS: PIPERACILLIN/TAZOBACTAM 3.375 GM in DEXTROSE 5% 50 ML IV SCH ×4 (05:00→23:00)
--- NOTE | 2019-05-28 05:00 | NUR ---
ANAHI HUNG AND RUNNING. PT TOLERATING WELL.
[2019-05-28] MEDS: BLOOD GLUCOSE MONITORING 1 DEV DEV FS SCH ×4 (05:50→20:05)
[2019-05-28] MEDS: INSULIN LISPRO SLIDING SCALE 100 UNITS/ML VIAL SUBQ PRN ×4 (05:52→20:09)
--- NOTE | 2019-05-28 05:52 | NUR ---
BS 157. 2 UNITS OF HUMALOG GIVEN. PT TOLERATED WELL.
[2019-05-28] MEDS ORDERED: MAGNESIUM OXIDE 400 MG TAB PO SCH (06:45)
--- NOTE | 2019-05-28 06:50 | NUR ---
MAG OX GIVEN PO. PT TOLERATED WELL. PT IN STABLE CONDITION.
[2019-05-28 06:54] LABS: BASOPHILS # (AUTO) 0.1 K/uL (0.00-0.22); BASOPHILS % (AUTO) 0.7 % (0.0-2.0); EOSINOPHILS # (AUTO) 0.2 K/uL (0-0.4); EOSINOPHILS % (AUTO) 1.6 % (0.0-4.0); HEMATOCRIT 28.3 % (36-52); HEMOGLOBIN 9.5 g/dL (12.0-18.0); LYMPHOCYTES # (AUTO) 1.2 K/uL (2.0-11.5); LYMPHOCYTES % (AUTO) 11.7 % (20.5-51.1); MEAN CORPUSCULAR HEMOGLOBIN 32 pg (27-31); MEAN CORPUSCULAR HGB CONC 34 g/dL (33-37); MEAN CORPUSCULAR VOLUME 94.2 fL (80-94); MONOCYTES % (AUTO) 9.8 % (1.7-9.3); NEUTROPHILS # (AUTO) 7.8 K/uL (1.8-7.7); NEUTROPHILS % (AUTO) 76.2 % (42.2-75.2); PLATELET COUNT (AUTO) 341 K/uL (140-450); RED CELL DISTRIBUTION WIDTH 12.4 % (11.6-13.7); WHITE BLOOD COUNT (AUTO) 10.2 K/uL (4.8-10.8)
[2019-05-28 07:10] LABS: CARBON DIOXIDE 25.1 mmol/L (21-32); CREATININE 0.9 mg/dL (0.7-1.3); POTASSIUM 4.1 mmol/L (3.5-5.1)
--- NOTE | 2019-05-28 07:10 | NUR ---
RECEIVE REPORT FROM PM NURSE. PT IS ASLEEP. RESPIRATION ARE EVEN AND UNLABORED.
[2019-05-28 08:00] VITALS: BP 151/75
[2019-05-28] MEDS: GABAPENTIN 300 MG CAP PO SCH (09:06)
[2019-05-28] MEDS: LACTOBACILLUS RHAMNOSUS GG 1 EACH CAP PO SCH (09:06)
[2019-05-28] MEDS: FERROUS GLUCONATE 324 MG TAB PO SCH (09:08)
[2019-05-28] MEDS: INSULIN NPH HUMAN ISOPHANE 100 UNIT/ML VIAL SUBQ SCH ×2 (09:12→20:09)
[2019-05-28] MEDS ORDERED: MAG SULF 2000 MG/WATER PREMIX 50 ML IV SCH (09:30)
--- NOTE | 2019-05-28 09:56 | NUR ---
CALLED DR LUGO REGARDING PT INCREASING BP. DR LUGO SAID TO TAKE BP ON BOTH ARMS AND CONTINUE TO MONTIOR, IF IT'S OVER 160 FOR SUBSEQUENT TIMES TO NOTIFY .
[2019-05-28] MEDS: VANCOMYCIN 1,250 MG in DEXTROSE 5% 250 ML IV SCH ×3 (10:38→21:03)
--- NOTE | 2019-05-28 11:30 | NUR ---
PT IS ALERT AND AWAKE IN BED. RESPIRATION ARE EVEN AND UNLABORED. PT ON HIS IPAD.
--- NOTE | 2019-05-28 14:30 | NUR ---
PT RESTING BED. RESPIRATION EVEN AND UNLABORED. CALL LIGHT WITHIN REACH. IV RUNNING NS AT 20 ML/HR.
--- NOTE | 2019-05-28 15:33 | NUR ---
CALLED [facility] [employer] FOR SCD FOR PT. GAVE THE PT EDUCATIONAL HANDOUT ON DM INFORMATION ABOUT FOOT CARE AND DIABETES.
[2019-05-28 16:00] VITALS: BP 147/75
[2019-05-28] MEDS ORDERED: metFORMIN 500 MG TAB PO SCH (17:00)
--- NOTE | 2019-05-28 17:00 | NUR ---
PT REFUSED METFORMIN. PT STATES THE DOCTOR SAID HE WILL START HIM ON METFORMIN ON SATURDAY, AND WANTED TO WAIT UNTIL AFTER SURGERY.
--- NOTE | 2019-05-28 17:35 | NUR ---
PT IS RESTING IN BED. FAMILY MEMBERS AT THE BEDSIDE. RESPIRATION ARE EVEN AND UNLABORED. CALL LIGHT WITHIN REACH.
--- NOTE | 2019-05-28 18:48 | NUR ---
APPLIED SCD ON. PT IS TOLERATING THE SCD WELL. PT IS AWAKE AND ALERT, VISITING WITH A FRIEND.
--- NOTE | 2019-05-28 19:15 | NUR ---
GAVE REPORT FOR CONTINUATION OF CARE TO PM NURSE. PT IS STABLE.
--- NOTE | 2019-05-28 19:16 | NUR ---
REPORT RECEIVED FROM AM NURSE AT BEDSIDE. PT IN STABLE CONDITION. AAOX4. INTRODUCED SELF TO PT. BOARD UPDATED. NO COMPLAINTS OF PAIN. NO SOB. AFEBRILE. PT IS AMBULATORY WITH ASSIST DUE TO LEFT FOOT CELLULITIS. IV SITE R FA 22G RUNNING NS@20ML/HR PATENT AND INTACT. SKIN WARM, DRY, AND NOT INTACT DUE TO LEFT FOOT CELLULITIS S/P I&D. BED LOCKED IN LOW POSITION. CALL TORRES WITHIN REACH. SAFETY PRECAUTION IN PLACE. ALL NEEDS MET AT THIS TIME.
[2019-05-28] MEDS: MAG SULF 2000 MG/WATER PREMIX 50 ML IV SCH ×2 (19:54→21:08)
--- NOTE | 2019-05-28 19:54 | NUR ---
MAG RIDER HUNG AND RUNNING. PT TOLERATING WELL. 2ND BAG OF MAG WILL BE HELD DUE TO PHYSICIAN HOLD. PT RECEIVED 400MG MAG OX AND 2G MAG RIDER IN THE MORNING ALREADY AND PHYSICIAN WANTS TO HOLD SECOND BAG.
--- NOTE | 2019-05-28 20:05 | NUR ---
BS 184. 2 UNITS OF HUMALOG GIVEN. 12 UNITS OF HUMULIN N GIVEN SUBQ. PT TOLERATED WELL.
--- NOTE | 2019-05-28 21:03 | NUR ---
KARRI HASSAN AND RUNNING. PT TOLERATING WELL.
--- NOTE | 2019-05-28 23:00 | NUR ---
ANAHI HUNG AND RUNNING. PT TOLERATING WELL.
[2019-05-29] VITALS: BP 149/72
--- NOTE | 2019-05-29 01:30 | NUR ---
PT SLEEPING COMFORTABLY BUT AROUSABLE. NO S/S OF DISTRESS NOTED. WILL CONTINUE TO MONITOR.
[2019-05-29] MEDS: NACL 0.9% 1,000 ML IV SCH ×2 (01:31→22:47)
[2019-05-29] MEDS: VANCOMYCIN 1,250 MG in DEXTROSE 5% 250 ML IV SCH (03:14)
--- NOTE | 2019-05-29 03:14 | NUR ---
KARRI HASSAN AND RUNNING. PT TOLERATING WELL.
[2019-05-29] MEDS: PIPERACILLIN/TAZOBACTAM 3.375 GM in DEXTROSE 5% 50 ML IV SCH ×4 (05:20→23:47)
--- NOTE | 2019-05-29 05:20 | NUR ---
ANAHI HUNG AND RUNNING. PT TOLERATING WELL.
[2019-05-29] MEDS: BLOOD GLUCOSE MONITORING 1 DEV DEV FS SCH ×4 (06:02→21:59)
--- NOTE | 2019-05-29 06:02 | NUR ---
BS 153. PT IS GOING IN FOR SURGERY AND IS ON NS ONLY. DISCUSSED WITH MD. SAID TO HOLD HUMALOG.
[2019-05-29 06:55] LABS: ANION GAP 12.1 (8-16); CARBON DIOXIDE 26.5 mmol/L (21-32); CREATININE 1.1 mg/dL (0.7-1.3); POTASSIUM 4.6 mmol/L (3.5-5.1)
--- NOTE | 2019-05-29 07:00 | NUR ---
PT SLEEPING COMFORTABLY BUT AROUSABLE. NO S/S OF DISTRESS. PT IN STABLE CONDITION.
--- NOTE | 2019-05-29 07:05 | NUR ---
RECEIVE REPORT FROM PM NURSE. PT WAS ASLEEP BUT AWOKE WHEN HIS NAME WAS CALLED. RESPIRATION ARE EVEN AND UNLABORED.
[2019-05-29 07:20] LABS: BASOPHILS % (AUTO) 0.3 % (0.0-2.0); EOSINOPHILS # (AUTO) 0.2 K/uL (0-0.4); EOSINOPHILS % (AUTO) 1.7 % (0.0-4.0); HEMATOCRIT 29.6 % (36-52); LYMPHOCYTES # (AUTO) 1.4 K/uL (2.0-11.5); LYMPHOCYTES % (AUTO) 13.1 % (20.5-51.1); MEAN CORPUSCULAR HEMOGLOBIN 32 pg (27-31); MEAN CORPUSCULAR HGB CONC 34 g/dL (33-37); MEAN CORPUSCULAR VOLUME 94.7 fL (80-94); MONOCYTES # (AUTO) 1.2 K/uL (0.8-1.0); MONOCYTES % (AUTO) 11.4 % (1.7-9.3); NEUTROPHILS # (AUTO) 7.7 K/uL (1.8-7.7); NEUTROPHILS % (AUTO) 73.5 % (42.2-75.2); PLATELET COUNT (AUTO) 370 K/uL (140-450); RED BLOOD CELL COUNT(AUTO) 3.13 MIL/uL (4.20-6.10); RED CELL DISTRIBUTION WIDTH 12.4 % (11.6-13.7); WHITE BLOOD COUNT (AUTO) 10.4 K/uL (4.8-10.8)
[2019-05-29 08:00] VITALS: BP 146/76
[2019-05-29] MEDS: metFORMIN 500 MG TAB PO SCH ×2 (08:00→17:22)
[2019-05-29] MEDS: FLUCONAZOLE 200 MG/NS PREMIX 100 ML IV SCH (08:52)
[2019-05-29] MEDS: INSULIN NPH HUMAN ISOPHANE 100 UNIT/ML VIAL SUBQ SCH ×2 (09:00→21:00)
[2019-05-29] MEDS: GABAPENTIN 300 MG CAP PO SCH (09:00)
[2019-05-29] MEDS: LACTOBACILLUS RHAMNOSUS GG 1 EACH CAP PO SCH (09:00)
[2019-05-29] MEDS ORDERED: BUPIVACAINE-MPF 0.25% 30 ML VIAL INJ ONE (09:26)
[2019-05-29] MEDS ORDERED: INSULIN REGULAR, HUMAN 100 UNIT/ML VIAL ONE (10:16)
[2019-05-29] MEDS ORDERED: LABETALOL 20 MG/4 ML VIAL IVP ONE (10:16)
[2019-05-29] MEDS ORDERED: KETAMINE 500 MG/5 ML VIAL ONE (10:20)
--- NOTE | 2019-05-29 10:20 | NUR ---
Pt left unit via hospital bed for left foot surgery, accompanied by 2 OR nurses & family members. Pt has no signs of distress.
[2019-05-29] MEDS ORDERED: MIDAZOLAM 2 MG/2 ML VIAL ONE (10:33)
[2019-05-29] MEDS ORDERED: HYDROmorphone 1 MG/ML AMP IVP PRN (10:45)
[2019-05-29] MEDS ORDERED: ONDANSETRON 4 MG/2 ML VIAL IVP PRN (10:45)
[2019-05-29] MEDS ORDERED: BLOOD GLUCOSE MONITORING 1 DEV DEV FS ONE (10:45)
--- NOTE | 2019-05-29 12:00 | NUR ---
PT ARRIVED IN ROOM FROM SURGERY, LEFT FOOT SURGICAL DRESSING DRY AND INTACT. PT IS STABLE. PT IS AWAKE AND ALERT. FAMILY AT BEDSIDE. PT ON VITAL SIGNS CHECK Q 15 MINS.
[2019-05-29] MEDS: INSULIN LISPRO SLIDING SCALE 100 UNITS/ML VIAL SUBQ PRN ×3 (14:18→22:06)
--- NOTE | 2019-05-29 14:51 | NUR ---
PT IN BED EATING A LATE LUNCH. FAMILY AT BEDSIDE. CALL LIGHT WITHIN REACH. PT IS WITHOUT SIGNS OF DISTRESS, RESPIRATIONS ARE EVEN AND UNLABORED. IV RUNNING NS AT 20 MLS/HR.
[2019-05-29 16:00] VITALS: BP 147/67
--- NOTE | 2019-05-29 17:00 | NUR ---
PT IN BED VISITING WITH FAMILY. RESPIRATION ARE EVEN AND UNLABORED. NS RUNNING AT 20 ML/HR. CALL LIGHT WITHIN REACH. SCD ON.
[2019-05-29] MEDS ORDERED: CLIN300C6 PO (17:30)
[2019-05-29] MEDS ORDERED: LACT1CAP71 PO (17:30)
[2019-05-29] MEDS ORDERED: CIPR500T9 PO (17:30)
[2019-05-29] MEDS ORDERED: METF-1022 PO (17:35)
--- NOTE | 2019-05-29 19:15 | NUR ---
GAVE REPORT TO PM NURSE, JONAS. PT IS STABLE, AWAKE AND ALERT, RESPIRATIONS ARE EVEN AND UNLABORED.
--- NOTE | 2019-05-29 19:30 | NUR ---
RECEIVED REPORT FORM MONICA RN DAYSHIFT NURSE AT BEDSIDE FOR CONTINUITY OF CARE, PT IN STABLE CONDITION.
--- NOTE | 2019-05-29 20:00 | NUR ---
PT IN BED NO C/O OF PAIN OR DISTRESS NOTED. BED LOW, SIDE RAILS UP X2 AND CALL TORRES N REACH. V/S FOLLOWS T 97.5 P 78 R 18 B/P 152/75 02 99% ON ROOM AIR. URINAL AT BEDSIDE AND COMMODE AT BEDSIDE.
--- NOTE | 2019-05-29 21:00 | NUR ---
PT FINGERSTICK IS 293, PT GIVEN 6 UNITS OF HUMALOG COVERAGE WELL 12 UNITS OF HUMULIN N FOR LONG ACTING COVERAGE. LEFT FOOT DRESSING IN PLACE NO S/S OF BLEEDING OR DRAINAGE NOTED. 400MLS OF URINE IN URINAL, LEFT FOOT IS ELEVATED. PT DENIES ANY PAIN ALL REQUESTED NEEDS ATTENDED AND CALL TORRES IN REACH.
--- NOTE | 2019-05-29 23:00 | NUR ---
GAVE BEDSIDE REPORT TO DECEMBER DUE TO CHANGE OF ASSIGNMENT. PT IN STABLE CONDITION.
--- NOTE | 2019-05-29 23:10 | NUR ---
RECEIVED PT FROM JONAS FOR CONTINUOUS CARE. PT SLEEPING IN BED COMFORTABLY.
--- NOTE | 2019-05-29 23:47 | NUR ---
GIVEN ZOSYN MD ORDERED, VS CHECKED, WITHIN PT'S BASELINE.
[2019-05-30 00:39] VITALS: BP 143/65
--- NOTE | 2019-05-30 01:25 | NUR ---
ENDORSED PT TO SONA FOR CONTINUOUS CARE. PT IN STABLE CONDITION.
--- NOTE | 2019-05-30 01:30 | NUR ---
RECEIVED BEDSIDE REPORT FROM PLANNING DIRECTOR RN MALICK, FOR PT'S CONTINUITY OF CARE. PT IS LYING DOWN ASLEEP, WITH NO SIGNS OF DISTRESS. WILL CONTINUE TO MONITOR PT.
--- NOTE | 2019-05-30 03:00 | NUR ---
ASSISTED PT TO BEDSIDE COMMODE. BM X 1. PT TOLERATED ACTIVITY WELL. DENIES ANY PAIN AT THIS TIME. WILL CONTINUE TO MONITOR PT.
[2019-05-30] MEDS: PIPERACILLIN/TAZOBACTAM 3.375 GM in DEXTROSE 5% 50 ML IV SCH (05:50)
--- NOTE | 2019-05-30 05:50 | NUR ---
ADMINISTERED SCHEDULED IV ABX ORDERED. BLOOD SUGAR CHECKED AND CHARTED. PT DENIES ANY PAIN AT THIS TIME. WILL CONTINUE TO MONITOR PT.
[2019-05-30] MEDS: BLOOD GLUCOSE MONITORING 1 DEV DEV FS SCH (05:54)
[2019-05-30] MEDS: INSULIN LISPRO SLIDING SCALE 100 UNITS/ML VIAL SUBQ PRN (06:08)
--- NOTE | 2019-05-30 06:11 | NUR ---
ADMINISTERED SUBQ SLIDING SCALE INSULIN ORDERED. PT TOLERATED IT WELL. PT LYING DOWN ASLEEP WITH NO SIGNS OF DISTRESS, PT TEACHING GIVEN, PT NODDED. WILL ENDORSE TO AM SHIFT RN FOR PT'S CONTINUITY OF CARE.
[2019-05-30 06:22] LABS: BASOPHILS % (AUTO) 0.2 % (0.0-2.0); EOSINOPHILS # (AUTO) 0.1 K/uL (0-0.4); EOSINOPHILS % (AUTO) 1.2 % (0.0-4.0); HEMATOCRIT 27.6 % (36-52); HEMOGLOBIN 9.2 g/dL (12.0-18.0); LYMPHOCYTES # (AUTO) 1.3 K/uL (2.0-11.5); LYMPHOCYTES % (AUTO) 10.5 % (20.5-51.1); MEAN CORPUSCULAR HEMOGLOBIN 32 pg (27-31); MEAN CORPUSCULAR HGB CONC 34 g/dL (33-37); MEAN CORPUSCULAR VOLUME 94.3 fL (80-94); MONOCYTES # (AUTO) 1.4 K/uL (0.8-1.0); MONOCYTES % (AUTO) 11.3 % (1.7-9.3); NEUTROPHILS # (AUTO) 9.7 K/uL (1.8-7.7); NEUTROPHILS % (AUTO) 76.8 % (42.2-75.2); PLATELET COUNT (AUTO) 380 K/uL (140-450); RED BLOOD CELL COUNT(AUTO) 2.92 MIL/uL (4.20-6.10); RED CELL DISTRIBUTION WIDTH 12.7 % (11.6-13.7); WHITE BLOOD COUNT (AUTO) 12.6 K/uL (4.8-10.8)
[2019-05-30 06:43] LABS: ANION GAP 15.5 (8-16); CARBON DIOXIDE 24.7 mmol/L (21-32); CREATININE 1.2 mg/dL (0.7-1.3); POTASSIUM 4.2 mmol/L (3.5-5.1)
--- NOTE | 2019-05-30 07:15 | NUR ---
RECEIVED PT FROM NIGHT NURSE. PT AWAKE IN BED AAOX4. DENIES PAIN AT THIS TIME. NO DISTRESS NOTED. RESPIRATIONS EVEN AND UNLABORED ON ROOM AIR, CLEAR BREATH SOUNDS. SURGICAL WOUNDS S/P LEFT 1ST AND 2ND TOE AMPUTATION, OTHERWISE SKIN INTACT. IV SITE IN PLACE ASYMPTOMATIC PATENT AND INFUSING PER ORDER IN R AC 22G. SAFETY MEASURES IN PLACE. BED IN LOW POSITION. CALL LIGHT WITHIN REACH. WILL CONTINUE TO MONITOR.
[2019-05-30] MEDS: metFORMIN 500 MG TAB PO SCH (08:23)
[2019-05-30] MEDS: FLUCONAZOLE 200 MG/NS PREMIX 100 ML IV SCH (08:23)
[2019-05-30] MEDS: LACTOBACILLUS RHAMNOSUS GG 1 EACH CAP PO SCH (08:25)
[2019-05-30] MEDS: GABAPENTIN 300 MG CAP PO SCH (08:26)
[2019-05-30] MEDS: INSULIN NPH HUMAN ISOPHANE 100 UNIT/ML VIAL SUBQ SCH (08:30)
[2019-05-30] MEDS: FERROUS GLUCONATE 324 MG TAB PO SCH (08:31)
--- NOTE | 2019-05-30 08:32 | NUR ---
MEDICATIONS ADMINISTERED PER ORDER. PT TOLERATED WELL. NO DISTRESS NOTED. WILL CONTINUE TO MONITOR. Addendum: 05/30/19 at 0834 by Shun Jj RN METFORMIN 1000MG NOT GIVEN. ORDER DISCONTINUED.
[2019-05-30] MEDS ORDERED: VANCOMYCIN 1,000 MG in DEXTROSE 5% 250 ML IV SCH (09:00)
[2019-05-30 09:58] VITALS: BP 128/65
[2019-05-30] MEDS ORDERED: FLUC200T PO (10:51)
--- NOTE | 2019-05-30 11:10 | NUR ---
PT DISCHARGED AT THIS TIME. FOLLOW UP, DISCHARGE AND MEDICATION TEACHING GIVEN, PT VERBALIZED UNDERSTANDING. DISCHARGE PAPERWORK SIGNED. IV SITE REMOVED WITH MINIMAL BLOOD LOSS AND LUMEN INTACT. RESPIRATIONS EVEN AND UNLABORED ON ROOM AIR, CLEAR BREATH SOUNDS. VITAL SIGNS STABLE. ID BANDS REMOVED. SURGICAL WOUND ON LEFT FOOT. PICTURE NOT TAKEN, LESS THAN 24HS FROM PROCEDURE. BUSINESS EXECUTIVE FOLLOWUP IN PLACE. PT WILL BE RECEIVING HOME HEALTH FOR WOUND CARE AND PT. ID BANDS REMOVED. BELONGINGS VERIFIED AND RETURNED TO PT. PT ESCORTED OFF UNIT IN WHEELCHAIR. LEFT HOSPITAL IN PRIVATE VEHICLE ACCOMPANIED BY FAMILY MEMBER
== END 2019-05-30 11:10 | disposition home health service (06) | DRG 617 ==
LOC: MED 15:40 → MTU 18:03
PROVIDERS: ADMIT General Practice; ATTEND General Practice
PROC: 0Y9N0ZZ Drainage of Left Foot, Open Approach (ICD-10-PCS; 2019-05-24)
PROC: 0Y6Q0Z1 Detachment at Left 1st Toe, High, Open Approach (ICD-10-PCS; principal; 2019-05-25 12:00)
PROC: 0Y6N0Z9 Detachment at Left Foot, Partial 1st Ray, Open Approach (ICD-10-PCS; 2019-05-29)
PROC: 0YQNXZZ Repair Left Foot, External Approach (ICD-10-PCS; 2019-05-29)
DX: E11.69 Type 2 diabetes mellitus with other specified complication (principal); L03.116 Cellulitis of left lower limb; E44.0 Moderate protein-calorie malnutrition; M86.8X7 Other osteomyelitis, ankle and foot; E11.51 Type 2 diabetes mellitus with diabetic peripheral angiopathy without gangrene; E83.42 Hypomagnesemia; E83.39 Other disorders of phosphorus metabolism; L97.529 Non-pressure chronic ulcer of other part of left foot with unspecified severity; E11.621 Type 2 diabetes mellitus with foot ulcer; E11.65 Type 2 diabetes mellitus with hyperglycemia; D50.0 Iron deficiency anemia secondary to blood loss (chronic); Z68.25 Body mass index [BMI] 25.0-25.9, adult; Z79.4 Long term (current) use of insulin; Z98.42 Cataract extraction status, left eye; Z98.41 Cataract extraction status, right eye; Z91.14 Patient's other noncompliance with medication regimen
CPT/HCPCS: 36415; 36600; 71045; 73630; 80048; 80053; 80202; 81003; 82009; 82550; 82553; 82607; 82746; 82803; 82948; 83036; 83540; 83605; 83735; 83874; 84100; 84443; 84484; 84550; 85025; 85045; 85379; 85610; 85730; 86140; 87040; 87070; 87075; 87081; 87086; 87205; 88304; 88305; 88311; 93005; 93926; 93971; 96365; 99285; J1450; J1815; J2250; J2543; J2704; J3010; J3370; J3475; J3490; J7030; J7060; Q0092